=== PATIENT | male | born 1945 | race Caucasian/White ===

== ENCOUNTER → 2017-08-30 | Outpatient (CLI) | payer OTHER ==
[~2017-08-30] MED LIST: AMLO2.5T PO; APRE30TA2 PO; ATEN25TA PO; CHOL100040 PO; CITA40TA6 PO; FISH1CAP49 PO; FOLI1TAB15 PO; LISI-617 PO; PANT40TA25 PO; PRAV80TA21 PO; RANO500T2 PO; SILD100T71 PO
== END | disposition home or self-care (01) ==
LOC: RAH 08:38
PROVIDERS: ATTEND Orthopaedic Surgery
DX: E11.9 Type 2 diabetes mellitus without complications (principal); I25.10 Atherosclerotic heart disease of native coronary artery without angina pectoris
CPT/HCPCS: 82043; 93306

== ENCOUNTER 2017-09-22 10:07 | Day surgery (SDC) | payer OTHER ==
[2017-09-20 09:32] VITALS: BP 133/67
[2017-09-20 09:48] LABS: HEMATOCRIT 42.9 % (42-54); LYMPHOCYTES % (AUTO) 30.7 % (21.0-51.0); MEAN CORPUSCULAR HEMOGLOBIN 31.9 pg (27.0-33.0); MEAN CORPUSCULAR HGB CONC 34.6 g/dL (32.0-36.0); MEAN CORPUSCULAR VOLUME 92.2 fL (79-99); NEUTROPHILS % (AUTO) 55.3 % (40.0-77.0); PLATELET COUNT (AUTO) 148 K/uL (130-400); RED BLOOD CELL COUNT(AUTO) 4.65 MIL/uL (4.50-6.20); RED CELL DISTRIBUTION WIDTH 13.4 % (11.0-15.5); WHITE BLOOD COUNT (AUTO) 6.3 K/uL (4.8-10.8)
[2017-09-20 09:51] LABS: APPEARANCE,URINE Clear (CLEAR); BILIRUBIN,URINE Negative (NEGATIVE); COLOR,URINE Yellow (YELLOW); GLUCOSE, URINE (UA) Negative (NEGATIVE); KETONES,URINE Negative (NEGATIVE); LEUKOCYTE ESTERASE ,URINE Negative (NEGATIVE); NITRATE,URINE Negative (NEGATIVE); OCCULT BLOOD,URINE Negative (NEGATIVE); PROTEIN,URINE Negative (NEGATIVE); UROBILINOGEN,URINE 0.2 mg/dL (0.2-1.0)
[2017-09-20 09:57] LABS: CREATININE 1.1 mg/dL (0.5-1.5); POTASSIUM 4.2 mmol/L (3.5-5.1)
[2017-09-20 10:16] LABS: INR 1.02 (0.85-1.15); PARTIAL THROMBOPLASTIN TIME 25.4 SEC (26.3-35.5); PROTHROMBIN TIME 10.7 SEC (9.6-11.6)
[~2017-09-22] VITALS: Ht 170.2 cm; Wt 66.0 kg
[2017-09-22] VITALS (11 sets, daily range): BP systolic 109–125; BP diastolic 55–71
[~2017-09-22 10:07] MED LIST changes: +ACETAMINOPHEN 325 MG TAB PO PRN; -RANO500T2 PO; +SODIUM CHLORIDE 0.9% 500ML 500 ML IV SCH
[2017-09-22] MEDS ORDERED: SODIUM CHLORIDE 0.9% 1000ML 1,000 ML IV ONE (10:34)
[2017-09-22] MEDS ORDERED: NITROGLYCERIN 5 MG/ML 10 ML VIAL IV ONE (13:46)
[2017-09-22] MEDS ORDERED: HEPARIN SODIUM 1000UNIT/ML 10ML VIAL ONE (13:46)
[2017-09-22] MEDS ORDERED: ISOVUE-370 50ML VIAL IV ONE (13:46)
[2017-09-22] MEDS ORDERED: SODIUM BICARB 50MEQ 50ML VIAL ONE (13:46)
[2017-09-22] MEDS ORDERED: IOPAMIDOL-370 100 ML VIAL IV ONE ×2 (13:46→13:48)
[2017-09-22] MEDS ORDERED: LIDOCAINE HCL 2% 20ML ONE (13:47)
[2017-09-22] MEDS ORDERED: ISOVUE-300 100 ML VIAL IV ONE (13:48)
[2017-09-22] MEDS ORDERED: MIDAZOLAM HCL 1 MG/ML 2ML VIAL ONE (14:04)
[2017-09-22] MEDS ORDERED: MEPERIDINE-PF 50 MG/ML SYG ONE (14:04)
[2017-09-22] MEDS ORDERED: SODIUM CHLORIDE 0.9% 1000ML 1,000 ML IV SCH (14:47)
[2017-09-22] MEDS ORDERED: RANO500T2 PO (14:51)
== END 2017-09-22 19:00 | disposition home or self-care (01) ==
LOC: DAH 10:07
PROVIDERS: ATTEND Internal Medicine Cardiovascular Disease
DX: I25.118 Atherosclerotic heart disease of native coronary artery with other forms of angina pectoris (principal); I71.4 Abdominal aortic aneurysm, without rupture; Z79.899 Other long term (current) drug therapy; I10 Essential (primary) hypertension; E78.5 Hyperlipidemia, unspecified; F17.210 Nicotine dependence, cigarettes, uncomplicated; E11.9 Type 2 diabetes mellitus without complications; Z90.49 Acquired absence of other specified parts of digestive tract; Z85.038 Personal history of other malignant neoplasm of large intestine; I73.9 Peripheral vascular disease, unspecified; Z88.8 Allergy status to other drugs, medicaments and biological substances; Z79.01 Long term (current) use of anticoagulants
CPT/HCPCS: 36415; 71045; 75625; 80048; 81003; 82948 ×2; 85025; 85610; 85730; 93005; 93458; A4606; C1760; C1894; J2175; J2250; J3490 ×3; J7030; Q9967 ×2; 99152; 99153; J1644

== ENCOUNTER → 2018-05-02 | Outpatient (CLI) | payer OTHER ==
[~2018-05-02] MED LIST changes: -ACETAMINOPHEN 325 MG TAB PO PRN; -AMLO2.5T PO; +AMLO2.5T3 PO; +RANO500T2 PO; -SODIUM CHLORIDE 0.9% 500ML 500 ML IV SCH
== END | disposition home or self-care (01) ==
LOC: RAH 07:34
PROVIDERS: ATTEND Internal Medicine Gastroenterology
DX: K70.31 Alcoholic cirrhosis of liver with ascites (principal); I10 Essential (primary) hypertension; E11.9 Type 2 diabetes mellitus without complications
CPT/HCPCS: 76700; 93975

== ENCOUNTER → 2019-05-29 | Outpatient (CLI) | payer OTHER ==
[~2019-05-29] MED LIST changes: -AMLO2.5T3 PO; +AMLO2.5T4 PO
== END | disposition home or self-care (01) ==
LOC: SHCH 07:48
PROVIDERS: ATTEND Internal Medicine Cardiovascular Disease
DX: K55.059 Acute (reversible) ischemia of intestine, part and extent unspecified (principal)
CPT/HCPCS: 93975

== ENCOUNTER → 2019-08-05 | Outpatient (CLI) | payer OTHER ==
[~2019-08-05] MED LIST changes: +IOHEXOL 350 MG/ML 100ML INFUS..BTL IV ONE
== END | disposition home or self-care (01) ==
LOC: RAH 07:55
PROVIDERS: ATTEND Internal Medicine Cardiovascular Disease
DX: K55.1 Chronic vascular disorders of intestine (principal); I71.4 Abdominal aortic aneurysm, without rupture
CPT/HCPCS: 74174; Q9967

== ENCOUNTER → 2019-12-26 | Outpatient (CLI) | payer OTHER ==
[~2019-12-26] MED LIST changes: -IOHEXOL 350 MG/ML 100ML INFUS..BTL IV ONE
== END | disposition home or self-care (01) ==
LOC: RAH 08:46
PROVIDERS: ATTEND Internal Medicine Gastroenterology
DX: K70.30 Alcoholic cirrhosis of liver without ascites (principal)
CPT/HCPCS: 76700; 93975

== ENCOUNTER → 2020-05-18 | Outpatient (CLI) | payer OTHER ==
[~2020-05-18] MED LIST changes: -PANT40TA25 PO; +PANT40TA54 PO
== END | disposition home or self-care (01) ==
LOC: RAH 07:18
PROVIDERS: ATTEND Internal Medicine Gastroenterology
DX: K70.31 Alcoholic cirrhosis of liver with ascites (principal)
CPT/HCPCS: 76700; 93975

== ENCOUNTER 2020-06-09 09:03 | Day surgery (SDC) | payer OTHER ==
[~2020-06-09] VITALS: Ht 175.3 cm; Wt 59.9 kg
[2020-06-09 09:45] VITALS: BP 119/67
[2020-06-09] MEDS ORDERED: LINA5TAB PO (11:01)
[2020-06-09] MEDS ORDERED: LISI-613 PO (11:01)
[2020-06-09] MEDS ORDERED: DEXL60CA3 PO (11:02)
[2020-06-09] MEDS ORDERED: TRAM50TA4 PO (11:02)
[2020-06-09] MEDS ORDERED: PROPOFOL 10 MG/ML 20ML VIAL IV ONE (11:04)
[2020-06-09] MEDS ORDERED: MIDAZOLAM HCL 1 MG/ML 2ML VIAL ONE (11:04)
[2020-06-09] MEDS: SODIUM CHLORIDE 0.9% 1000ML 1,000 ML IV ONE (11:06)
[2020-06-09 11:25] VITALS: BP 96/45
--- NOTE | 2020-06-09 11:25 | NUR ---
post gi received pt and report from terese head and ovidio mistry crna. pt in no distress. pt connected to property assessment monitor. will continue to assess
[2020-06-09 11:40] VITALS: BP 84/42
--- NOTE | 2020-06-09 11:40 | NUR ---
report called ovidio mistry and reported b/p. received new orders will carry out as needed.
[2020-06-09] MEDS ORDERED: EPHEDRINE SULFATE 50 MG/ML AMPULE ONE (11:44)
[2020-06-09 11:55] VITALS: BP 99/57
[2020-06-09 12:10] VITALS: BP 108/57
--- NOTE | 2020-06-09 12:20 | NUR ---
discharge daughter given d/c instructions. she voiced understanding. pt taken out via w/c in no distress by kristine coles
[2020-06-09] MEDS ORDERED: EPHEDRINE SULFATE 50 MG/ML AMPULE IVP ONE (14:15)
== END 2020-06-09 12:20 | disposition home or self-care (01) ==
LOC: ENDO 09:03 → DAH 09:03 → ENDO 12:20
PROVIDERS: ATTEND Internal Medicine Gastroenterology
DX: R93.3 Abnormal findings on diagnostic imaging of other parts of digestive tract (principal); K76.6 Portal hypertension; K31.89 Other diseases of stomach and duodenum; K22.8 Other specified diseases of esophagus; K22.2 Esophageal obstruction; K86.9 Disease of pancreas, unspecified; J44.9 Chronic obstructive pulmonary disease, unspecified; I10 Essential (primary) hypertension; K21.9 Gastro-esophageal reflux disease without esophagitis; I25.10 Atherosclerotic heart disease of native coronary artery without angina pectoris; E11.9 Type 2 diabetes mellitus without complications; F11.20 Opioid dependence, uncomplicated; I85.00 Esophageal varices without bleeding; K22.70 Barrett's esophagus without dysplasia; K70.31 Alcoholic cirrhosis of liver with ascites; Z85.038 Personal history of other malignant neoplasm of large intestine; E78.5 Hyperlipidemia, unspecified; Z79.899 Other long term (current) drug therapy; Z90.49 Acquired absence of other specified parts of digestive tract; Z98.890 Other specified postprocedural states; Z20.828 Contact with and (suspected) exposure to other viral communicable diseases
CPT/HCPCS: 43237; 82948 ×2; A4215; A4221; A4222; A4223; A4606; A4620; A4663; C9803; J2250; J2704; J7030; U0003; 43259; J3490

== ENCOUNTER 2020-09-20 20:51 | Inpatient (IN) | payer OTHER ==
[~2020-09-20] VITALS: Ht 175.3 cm; Wt 67.4 kg
[~2020-09-20 20:51] MED LIST changes: -AMLO2.5T4 PO; -CITA40TA6 PO; +DEXL60CA3 PO; -FISH1CAP49 PO; +LINA5TAB PO; -LISI-617 PO; +LISI20TA24 PO; -PANT40TA54 PO; -SILD100T71 PO; +TRAM50TA4 PO
[2020-09-20 21:19] LABS: BASOPHILS % (AUTO) 0.6 % (0.0-5.0); EOSINOPHILS % (AUTO) 0.9 % (0.0-8.0); LYMPHOCYTES % (AUTO) 33.3 % (21.0-51.0); MEAN CORPUSCULAR HEMOGLOBIN 29.6 pg (27.0-33.0); MEAN CORPUSCULAR HGB CONC 33.9 g/dL (32.0-36.0); MEAN CORPUSCULAR VOLUME 87.2 fL (79-99); NEUTROPHILS % (AUTO) 56.4 % (40.0-77.0); PLATELET COUNT (AUTO) 194 K/uL (130-400); RED BLOOD CELL COUNT(AUTO) 4.36 MIL/uL (4.50-6.20); RED CELL DISTRIBUTION WIDTH 15.2 % (11.0-15.5); WHITE BLOOD COUNT (AUTO) 9.7 K/uL (4.8-10.8)
[2020-09-20 21:26] LABS: CREATININE 1.2 mg/dL (0.5-1.5); POTASSIUM 3.2 mmol/L (3.5-5.1)
[2020-09-20 21:28] LABS: INR 0.99 (0.85-1.15); PROTHROMBIN TIME 10.8 SEC (9.6-11.6)
[2020-09-20 21:30] LABS: PARTIAL THROMBOPLASTIN TIME 23.6 SEC (26.3-35.5)
[2020-09-20 21:33] LABS: ALBUMIN 3.2 g/dL (3.5-5.0); BILIRUBIN,TOTAL 0.3 mg/dL (0.2-1.0); TOTAL PROTEIN, SERUM 7.4 g/dL (6.0-8.3)
[2020-09-20] MEDS ORDERED: HYDROMORPHONE 1 MG INJ ONE (21:38)
[2020-09-20] MEDS ORDERED: ONDANSETRON 4MG INJ ONE (21:38)
[2020-09-20] MEDS ORDERED: 0.9%NACL 1000ML 1,000 ML IV ONE (21:39)
[2020-09-21] VITALS (21 sets, daily range): BP systolic 100–171; BP diastolic 47–94
[2020-09-21 00:49] LABS: APPEARANCE,URINE Clear (CLEAR); BILIRUBIN,URINE Negative (NEGATIVE); COLOR,URINE Yellow (YELLOW); GLUCOSE, URINE (UA) Negative (NEGATIVE); KETONES,URINE Negative (NEGATIVE); LEUKOCYTE ESTERASE ,URINE Small (NEGATIVE); NITRATE,URINE Negative (NEGATIVE); OCCULT BLOOD,URINE Negative (NEGATIVE); PH,URINE 5.5 (5.0-8.0); PROTEIN,URINE Negative (NEGATIVE); UROBILINOGEN,URINE 0.2 mg/dL (0.2-1.0)
[2020-09-21 00:58] LABS: BACTERIA,URINE Few /HPF (None Seen); RBC,URINE 0-1 /HPF (0-1); SQUAMOUS EPITHELIAL CELL,UR Moderate /HPF (0-2)
[2020-09-21 00:59] LABS: AMPHET/METH SCREEN,URINE NEGATIVE (NEGATIVE); BARBITURATE SCREEN, URINE NEGATIVE (NEGATIVE); BENZODIAZEPINES SCREEN,URINE NEGATIVE (NEGATIVE); CANNABINOID SCREEN,URINE NEGATIVE (NEGATIVE); COCAINE SCREEN,URINE NEGATIVE (NEGATIVE); OPIATE SCREEN,URINE NEGATIVE (NEGATIVE); PHENCYCLIDINE SCREEN,URINE NEGATIVE (NEGATIVE)
[2020-09-21] MEDS ORDERED: MORPHINE 2 MG SYG IVP PRN (02:30)
[2020-09-21] MEDS ORDERED: ACETAMINOPHEN 325 MG TAB PO PRN (02:30)
[2020-09-21] MEDS ORDERED: MORPHINE 4 MG SYG ONE (02:38)
[2020-09-21] MEDS ORDERED: ONDANSETRON 4MG INJ IVP PRN (02:45)
[2020-09-21] MEDS: MORPHINE 4 MG SYG IVP PRN ×2 (08:11→11:46)
[2020-09-21] MEDS ORDERED: LISI20TA24 PO (08:50)
[2020-09-21] MEDS ORDERED: NITR0.4T SL (08:50)
[2020-09-21] MEDS ORDERED: RANO500T2 PO (08:50)
[2020-09-21] MEDS ORDERED: CLONIDINE HCL 0.1 MG TABLET PO PRN (09:15)
[2020-09-21] MEDS ORDERED: POTASSIUM CHLORIDE 20MEQ/100ML 100 ML IV PRN (09:15)
[2020-09-21] MEDS ORDERED: POTASSIUM CHLORIDE 10% ELIXIR 20 MEQ/15 ML UDCUP PO PRN (09:15)
[2020-09-21] MEDS ORDERED: ONDANSETRON 4MG INJ IV PRN (09:15)
[2020-09-21] MEDS ORDERED: CEFAZOLIN SODIUM 1 GM VIAL IVP PRN (09:15)
[2020-09-21] MEDS ORDERED: LIDOCAINE HCL-MPF 1% 2ML VIAL IV PRN (09:15)
[2020-09-21] MEDS ORDERED: DiphenhydrAMINE HCL 50 MG/ML VIAL IV PRN (09:15)
[2020-09-21] MEDS ORDERED: DIPHENHYDRAMINE HCL 25 MG CAPSULE PO PRN (09:15)
[2020-09-21] MEDS ORDERED: KCL 20 MEQ ERTAB PO PRN (09:15)
[2020-09-21] MEDS ORDERED: LACTULOSE 20 GM/30 ML UDCUP PO PRN (09:15)
[2020-09-21] MEDS ORDERED: GLUCAGON 1MG KIT 1 MG ML IM PRN (09:15)
[2020-09-21] MEDS ORDERED: MAG/ALUM/SIMETH 30 ML UDCUP PO PRN (09:15)
[2020-09-21] MEDS ORDERED: DEXTROSE 50%-WATER 50 ML DISP.SYRIN IV PRN (09:15)
[2020-09-21] MEDS: 0.9%NACL 1000ML 1,000 ML IV SCH ×4 (10:30→21:50)
[2020-09-21] MEDS: INSULIN HUMULIN R 100 UNIT/ML 3ML SQ SCH ×3 (11:30→21:00)
[2020-09-21] MEDS ORDERED: ATENOLOL 25 MG TABLET PO SCH (11:45)
[2020-09-21] MEDS ORDERED: ROPIVACAINE 0.5% 5MG/ML 30ML IJ ONE (14:17)
[2020-09-21] MEDS ORDERED: ALBUMIN (HUMAN) 5% 250 ML IV ONE ×2 (14:18)
[2020-09-21] MEDS ORDERED: MIDAZOLAM HCL 1 MG/ML 2ML VIAL ONE (14:19)
[2020-09-21] MEDS ORDERED: FENTANYL CITRATE PF 50 MCG/1 ML 2ML VIAL ONE (14:20)
[2020-09-21] MEDS ORDERED: MORPHINE PF 100MG/10ML AMP IV ONE (15:28)
[2020-09-21] MEDS ORDERED: EPHEDRINE SULFATE 50 MG/ML AMPULE ONE (16:54)
[2020-09-21] MEDS ORDERED: CEFAZOLIN SODIUM 1 GM VIAL IVP SCH (19:15)
[2020-09-21] MEDS ORDERED: HYDROCODONE/ACETAMINOPHEN 5/325 MG TAB PO PRN (19:15)
[2020-09-21] MEDS: OTEZLA 30 MG PO SCH (21:00)
[2020-09-21] MEDS: RANOLAZINE 500 MG TAB.SR.12H PO SCH (21:42)
[2020-09-21] MEDS: ATORVASTATIN 10 MG TABLET PO SCH (21:42)
[2020-09-21] MEDS: HYDROCODONE/ACETAMINOPHEN 5/325 MG TAB PO PRN (21:43)
[2020-09-22] MEDS: CEFAZOLIN SODIUM 1 GM VIAL IVP SCH ×2 (00:47→09:08)
[2020-09-22 04:00] VITALS: BP 114/56
[2020-09-22 05:11] LABS: BASOPHILS % (AUTO) 0.2 % (0.0-5.0); EOSINOPHILS % (AUTO) 0.2 % (0.0-8.0); HEMATOCRIT 22.3 % (42-54); LYMPHOCYTES % (AUTO) 22.6 % (21.0-51.0); MEAN CORPUSCULAR HGB CONC 32.7 g/dL (32.0-36.0); MEAN CORPUSCULAR VOLUME 88.5 fL (79-99); MONOCYTES % (AUTO) 9.8 % (3.0-13.0); NEUTROPHILS % (AUTO) 66.7 % (40.0-77.0); PLATELET COUNT (AUTO) 94 K/uL (130-400); RED BLOOD CELL COUNT(AUTO) 2.52 MIL/uL (4.50-6.20); RED CELL DISTRIBUTION WIDTH 15.3 % (11.0-15.5); WHITE BLOOD COUNT (AUTO) 5.6 K/uL (4.8-10.8)
[2020-09-22 05:19] LABS: CREATININE 1.1 mg/dL (0.5-1.5); POTASSIUM 3.8 mmol/L (3.5-5.1)
[2020-09-22] MEDS: INSULIN HUMULIN R 100 UNIT/ML 3ML SQ SCH ×4 (06:41→20:28)
[2020-09-22] MEDS: 0.9%NACL 1000ML 1,000 ML IV SCH ×2 (07:50→20:24)
[2020-09-22 08:00] VITALS: BP 107/60
[2020-09-22] MEDS: OTEZLA 30 MG PO SCH ×2 (09:00→19:29)
[2020-09-22] MEDS ORDERED: **HM** DEXILANT 60MG PO SCH (09:00)
[2020-09-22] MEDS ORDERED: ENOXAPARIN SODIUM 30 MG/0.3 ML SQ SCH (09:00)
[2020-09-22] MEDS: PANTOPRAZOLE 40 MG TAB DR PO SCH (09:10)
[2020-09-22] MEDS: HYDROCODONE/ACETAMINOPHEN 5/325 MG TAB PO PRN ×2 (09:10→19:27)
[2020-09-22] MEDS: RANOLAZINE 500 MG TAB.SR.12H PO SCH ×2 (09:11→19:27)
[2020-09-22] MEDS: ATENOLOL 25 MG TABLET PO SCH (09:11)
[2020-09-22] MEDS: LISINOPRIL 10 MG TABLET PO SCH (09:11)
[2020-09-22] MEDS: LINAGLIPTIN 5 MG TABLET PO SCH (09:11)
[2020-09-22] MEDS: FOLIC ACID 1 MG TABLET PO SCH (09:11)
[2020-09-22] MEDS: TAMSULOSIN HCL 0.4 MG CAP.ER.24H PO SCH (09:11)
[2020-09-22] MEDS: TRAMADOL HCL 50 MG TABLET PO PRN ×2 (10:07→14:34)
[2020-09-22 11:23] VITALS: BP 85/48
[2020-09-22] MEDS ORDERED: 0.9% NACL 250ML 250 ML IV ONE (14:31)
[2020-09-22 16:34] VITALS: BP 85/48
[2020-09-22 18:05] LABS: HEMATOCRIT 25.9 % (42-54); MEAN CORPUSCULAR HEMOGLOBIN 28.8 pg (27.0-33.0); MEAN CORPUSCULAR HGB CONC 32.4 g/dL (32.0-36.0); MEAN CORPUSCULAR VOLUME 88.7 fL (79-99); RED BLOOD CELL COUNT(AUTO) 2.92 MIL/uL (4.50-6.20); WHITE BLOOD COUNT (AUTO) 8.3 K/uL (4.8-10.8)
[2020-09-22] MEDS: ATORVASTATIN 10 MG TABLET PO SCH (19:26)
[2020-09-22 20:00] VITALS: BP 92/43
[2020-09-22] MEDS: APIXABAN 2.5 MG TABLET PO SCH (20:28)
[2020-09-22 23:47] VITALS: BP 93/46
[2020-09-23 04:00] VITALS: BP 102/51
[2020-09-23] MEDS: INSULIN HUMULIN R 100 UNIT/ML 3ML SQ SCH ×3 (05:52→16:23)
[2020-09-23 06:12] LABS: HEMATOCRIT 24.3 % (42-54); MEAN CORPUSCULAR HGB CONC 33.3 g/dL (32.0-36.0); MEAN CORPUSCULAR VOLUME 87.1 fL (79-99); RED BLOOD CELL COUNT(AUTO) 2.79 MIL/uL (4.50-6.20); RED CELL DISTRIBUTION WIDTH 15.1 % (11.0-15.5)
[2020-09-23 06:31] LABS: CREATININE 1.1 mg/dL (0.5-1.5); POTASSIUM 3.8 mmol/L (3.5-5.1)
[2020-09-23 08:56] VITALS: BP 96/51
[2020-09-23] MEDS: OTEZLA 30 MG PO SCH (09:00)
[2020-09-23] MEDS: HYDROCODONE/ACETAMINOPHEN 5/325 MG TAB PO PRN ×2 (09:00→15:51)
[2020-09-23] MEDS: RANOLAZINE 500 MG TAB.SR.12H PO SCH ×2 (09:01→20:40)
[2020-09-23] MEDS: APIXABAN 2.5 MG TABLET PO SCH ×2 (09:01→20:39)
[2020-09-23] MEDS: LINAGLIPTIN 5 MG TABLET PO SCH (09:02)
[2020-09-23] MEDS: TAMSULOSIN HCL 0.4 MG CAP.ER.24H PO SCH (09:03)
[2020-09-23] MEDS: PANTOPRAZOLE 40 MG TAB DR PO SCH (09:03)
[2020-09-23] MEDS: LISINOPRIL 10 MG TABLET PO SCH (09:03)
[2020-09-23] MEDS: FOLIC ACID 1 MG TABLET PO SCH (09:03)
[2020-09-23] MEDS: ATENOLOL 25 MG TABLET PO SCH (09:04)
[2020-09-23 11:36] VITALS: BP 87/46
[2020-09-23] MEDS ORDERED: HYDR-4060 PO (15:55)
[2020-09-23] MEDS ORDERED: APIX2.5T PO (15:55)
[2020-09-23] MEDS ORDERED: TAMS-1 PO (15:57)
[2020-09-23 16:14] VITALS: BP 96/55
[2020-09-23] MEDS: ATORVASTATIN 10 MG TABLET PO SCH (20:39)
== END 2020-09-23 21:45 | DRG 481 ==
LOC: EDH 20:51 → EDHIP 09-21 01:09 → 3AH 09-21 02:19
PROVIDERS: ADMIT Internal Medicine; ATTEND Internal Medicine
PROC: 0QS706Z Reposition Left Upper Femur with Intramedullary Internal Fixation Device, Open Approach (ICD-10-PCS; principal; 2020-09-21 15:30)
PROC: 30233N1 Transfusion of Nonautologous Red Blood Cells into Peripheral Vein, Percutaneous Approach (ICD-10-PCS; 2020-09-22)
DX: S72.142A Displaced intertrochanteric fracture of left femur, initial encounter for closed fracture (principal); D68.69 Other thrombophilia; F11.20 Opioid dependence, uncomplicated; K55.1 Chronic vascular disorders of intestine; Z20.822 Contact with and (suspected) exposure to COVID-19; D35.00 Benign neoplasm of unspecified adrenal gland; D64.9 Anemia, unspecified; D69.59 Other secondary thrombocytopenia; E11.22 Type 2 diabetes mellitus with diabetic chronic kidney disease; E11.42 Type 2 diabetes mellitus with diabetic polyneuropathy; F10.129 Alcohol abuse with intoxication, unspecified; F17.200 Nicotine dependence, unspecified, uncomplicated; F32.9 Major depressive disorder, single episode, unspecified; F43.10 Post-traumatic stress disorder, unspecified; I13.10 Hypertensive heart and chronic kidney disease without heart failure, with stage 1 through stage 4 chronic kidney disease, or unspecified chronic kidney disease; I25.10 Atherosclerotic heart disease of native coronary artery without angina pectoris; I70.0 Atherosclerosis of aorta; I70.1 Atherosclerosis of renal artery; I71.4 Abdominal aortic aneurysm, without rupture; J43.9 Emphysema, unspecified; K22.70 Barrett's esophagus without dysplasia; K70.30 Alcoholic cirrhosis of liver without ascites; L40.50 Arthropathic psoriasis, unspecified; N18.2 Chronic kidney disease, stage 2 (mild); S80.212A Abrasion, left knee, initial encounter; W19.XXXA Unspecified fall, initial encounter; Y93.89 Activity, other specified; Y92.098 Other place in other non-institutional residence as the place of occurrence of the external cause; Y99.8 Other external cause status; Z79.84 Long term (current) use of oral hypoglycemic drugs; Z79.01 Long term (current) use of anticoagulants; Z79.899 Other long term (current) drug therapy; Z92.3 Personal history of irradiation; Z92.21 Personal history of antineoplastic chemotherapy; Z88.8 Allergy status to other drugs, medicaments and biological substances; Z90.49 Acquired absence of other specified parts of digestive tract; Z85.038 Personal history of other malignant neoplasm of large intestine; Z82.49 Family history of ischemic heart disease and other diseases of the circulatory system
CPT/HCPCS: 36415; 36430; 70450; 71045; 72125; 73070; 73110; 73502; 73503; 73552; 73560; 74176; 80048; 80053; 80305; 81001; 82948; 84484; 85025; 85027; 85610; 85730; 86850; 86900; 86901; 86923; 87426; 93005; 97039; 99291; A4344; A4606; G0378; J0690; J1170; J1650; J2250; J2270; J2274; J2405; J2795; J3010; J3480; J3490; J7030; J7050; P9016; P9045

== ENCOUNTER → 2021-08-04 | Outpatient (CLI) | payer OTHER ==
[~2021-08-04] MED LIST changes: +APIX2.5T PO; -ATEN25TA PO; -CHOL100040 PO; +HYDR-4060 PO; -LISI20TA24 PO; +NITR0.4T SL; +TAMS-1 PO; -TRAM50TA4 PO
== END | disposition home or self-care (01) ==
LOC: SHCH 09:47
PROVIDERS: ATTEND Internal Medicine Cardiovascular Disease
DX: I11.9 Hypertensive heart disease without heart failure (principal); I25.10 Atherosclerotic heart disease of native coronary artery without angina pectoris; I08.0 Rheumatic disorders of both mitral and aortic valves; E11.9 Type 2 diabetes mellitus without complications; E78.5 Hyperlipidemia, unspecified
CPT/HCPCS: 93306; 93356

== ENCOUNTER 2021-09-06 07:50 | Day surgery (SDC) | payer OTHER ==
[2021-09-02 13:14] LABS: BASOPHILS % (AUTO) 0.8 % (0.0-5.0); EOSINOPHILS % (AUTO) 1.6 % (0.0-8.0); HEMATOCRIT 30.8 % (42-54); LYMPHOCYTES % (AUTO) 26.2 % (21.0-51.0); MEAN CORPUSCULAR HEMOGLOBIN 29.3 pg (27.0-33.0); MEAN CORPUSCULAR HGB CONC 33.8 g/dL (32.0-36.0); MEAN CORPUSCULAR VOLUME 86.8 fL (79-99); MONOCYTES % (AUTO) 9.8 % (3.0-13.0); NEUTROPHILS % (AUTO) 60.8 % (40.0-77.0); PLATELET COUNT (AUTO) 197 K/uL (130-400); RED BLOOD CELL COUNT(AUTO) 3.55 MIL/uL (4.50-6.20); RED CELL DISTRIBUTION WIDTH 15.5 % (11.0-15.5); WHITE BLOOD COUNT (AUTO) 6.3 K/uL (4.8-10.8)
[2021-09-02 13:23] LABS: CREATININE 1.3 mg/dL (0.5-1.5); POTASSIUM 3.8 mmol/L (3.5-5.1)
[2021-09-02 13:25] LABS: INR 1.04 (0.85-1.15); PROTHROMBIN TIME 11.3 SEC (9.6-11.6)
[2021-09-02 13:27] LABS: PARTIAL THROMBOPLASTIN TIME 27.1 SEC (26.3-35.5)
[2021-09-03 10:42] VITALS: BP 142/75
[2021-09-03 12:06] VITALS: BP 142/75
[2021-09-06] VITALS (15 sets, daily range): BP systolic 90–128; BP diastolic 44–65
[~2021-09-06] VITALS: Ht 175.3 cm; Wt 61.4 kg
[~2021-09-06 07:50] MED LIST changes: +0.9% NACL 500ML IV.SOLN 500 ML IV SCH; +ALOG25TA2 PO; +AMLO2.5T4 PO; -APIX2.5T PO; -APRE30TA2 PO; +ATEN25TA PO; -HYDR-4060 PO; -LINA5TAB PO; +LISI10TA24 PO; +MIRT-22 PO; +MULT-1296 PO; -NITR0.4T SL; -TAMS-1 PO; +TRAM50TA4 PO; +vitamin d PO
[2021-09-06] MEDS ORDERED: FENTANYL CITRATE PF 50 MCG/1 ML 2ML VIAL ONE (08:58)
[2021-09-06] MEDS ORDERED: NALOXONE HCL 0.4 MG/1 ML ML ONE (08:58)
[2021-09-06] MEDS ORDERED: MIDAZOLAM HCL 1 MG/ML 2ML VIAL ONE (08:58)
[2021-09-06] MEDS ORDERED: FLUMAZENIL 0.1MG/1ML 5ML VIAL IV ONE (08:59)
[2021-09-06] MEDS ORDERED: RANO10003 PO (09:12)
[2021-09-06] MEDS ORDERED: LIDOCAINE HCL 2% VISCOUS 15 ML UDCUP ONE (09:26)
== END 2021-09-06 12:15 | disposition home or self-care (01) ==
LOC: DAH 07:50
PROVIDERS: ATTEND Internal Medicine Cardiovascular Disease
DX: I34.0 Nonrheumatic mitral (valve) insufficiency (principal); I25.10 Atherosclerotic heart disease of native coronary artery without angina pectoris; I45.10 Unspecified right bundle-branch block; I10 Essential (primary) hypertension; E78.5 Hyperlipidemia, unspecified; E11.9 Type 2 diabetes mellitus without complications; L40.50 Arthropathic psoriasis, unspecified; K70.31 Alcoholic cirrhosis of liver with ascites; Z98.890 Other specified postprocedural states; Z90.49 Acquired absence of other specified parts of digestive tract; Z95.5 Presence of coronary angioplasty implant and graft; Z82.49 Family history of ischemic heart disease and other diseases of the circulatory system; Z87.891 Personal history of nicotine dependence; Z79.899 Other long term (current) drug therapy; Z79.01 Long term (current) use of anticoagulants
CPT/HCPCS: 36415; 80048; 82948; 85025; 85610; 85730; 93005; 93312; A4215; A4216; A4221; A4222; A4223 ×3; A4606; A4615; A4657; A4663; A7002; J2250; J3010; J7040; 99152; J2310; J3490

== ENCOUNTER 2021-12-13 07:20 | Day surgery (SDC) | payer OTHER ==
[2021-12-09 14:36] LABS: BASOPHILS % (AUTO) 0.4 % (0.0-5.0); EOSINOPHILS % (AUTO) 0.6 % (0.0-8.0); HEMATOCRIT 35.4 % (42-54); LYMPHOCYTES % (AUTO) 35.9 % (21.0-51.0); MEAN CORPUSCULAR HEMOGLOBIN 29.6 pg (27.0-33.0); MEAN CORPUSCULAR HGB CONC 33.3 g/dL (32.0-36.0); MEAN CORPUSCULAR VOLUME 88.7 fL (79-99); MONOCYTES % (AUTO) 9.6 % (3.0-13.0); NEUTROPHILS % (AUTO) 52.1 % (40.0-77.0); PLATELET COUNT (AUTO) 314 K/uL (130-400); RED BLOOD CELL COUNT(AUTO) 3.99 MIL/uL (4.50-6.20); WHITE BLOOD COUNT (AUTO) 7.1 K/uL (4.8-10.8)
[2021-12-09 14:49] LABS: INR 0.96 (0.85-1.15); PROTHROMBIN TIME 10.5 SEC (9.6-11.6)
[2021-12-09 14:50] LABS: PARTIAL THROMBOPLASTIN TIME 27.9 SEC (26.3-35.5)
[2021-12-09 14:58] LABS: CREATININE 1.2 mg/dL (0.5-1.5); POTASSIUM 4.4 mmol/L (3.5-5.1)
[2021-12-10 09:23] VITALS: BP 136/71
[~2021-12-13] VITALS: Ht 175.3 cm; Wt 60.5 kg
[2021-12-13] VITALS (16 sets, daily range): BP systolic 108–145; BP diastolic 49–72
[~2021-12-13 07:20] MED LIST changes: +RANO10003 PO; -RANO500T2 PO
[2021-12-13] MEDS ORDERED: 0.9%NACL 1000ML 1,000 ML IV ONE (07:32)
[2021-12-13] MEDS ORDERED: LIDOCAINE HCL 2% VISCOUS 15 ML UDCUP ONE (07:32)
[2021-12-13] MEDS ORDERED: FENTANYL CITRATE PF 50 MCG/1 ML 2ML VIAL ONE (08:33)
[2021-12-13] MEDS ORDERED: MIDAZOLAM HCL 1 MG/ML 2ML VIAL ONE (08:33)
== END 2021-12-13 10:30 | disposition home or self-care (01) ==
LOC: DAH 07:20 → EDSTATUS 08:00 → DAH 10:30
PROVIDERS: ATTEND Internal Medicine Cardiovascular Disease
DX: I35.0 Nonrheumatic aortic (valve) stenosis (principal); I10 Essential (primary) hypertension; I25.10 Atherosclerotic heart disease of native coronary artery without angina pectoris; K21.9 Gastro-esophageal reflux disease without esophagitis; I49.1 Atrial premature depolarization; E78.5 Hyperlipidemia, unspecified; E11.51 Type 2 diabetes mellitus with diabetic peripheral angiopathy without gangrene; Z87.891 Personal history of nicotine dependence; Z95.5 Presence of coronary angioplasty implant and graft; Z98.890 Other specified postprocedural states; Z82.49 Family history of ischemic heart disease and other diseases of the circulatory system; Z79.01 Long term (current) use of anticoagulants; Z79.899 Other long term (current) drug therapy
CPT/HCPCS: 36415; 80048; 82948; 85025; 85610; 85730; 93005; 93312; 93325; A4215; A4216; A4221; A4222; A4223 ×3; A4606; A4615; A4663; A7002; J2250; J3010; J7030; 99152